=== PATIENT | female | born 1995 | race Caucasian/White ===

== ENCOUNTER 2016-09-20 20:02 | Emergency (ER) | payer OTHER ==
--- NOTE | 2016-09-20 20:30 | EDPHY ---
H & P Stated Complaint: lmixed dark and light blood in diarrhea x1, nausea, denies abd pain HPI/ROS: CHIEF COMPLAINT: Bloody diarrhea. HISTORY OF PRESENT ILLNESS: The patient is a 21-year-old otherwise healthy female who presents with an episode of bloody diarrhea 30 minutes ago. She reports there being a large amount of blood in the toilet. She admits associated nausea. She denies vomiting, other episodes of diarrhea, fever, recent sickness, recent travel, or other complaints. She denies recent sick contact. She has no history of hemorrhoids. She does not have abdominal pain. REVIEW OF SYSTEMS: A ten point review of systems was performed and is negative with the exception of the items mentioned in the HPI. Source: Patient Exam Limitations: No limitations - Personal History LMP (Females 10-55): Extended Cycle BCP/Inj Current Tetanus/Diphtheria Vaccine: Yes Current Tetanus Diphtheria and Acellular Pertussis (TDAP): Yes - Medical/Surgical History Hx Asthma: No Hx Chronic Respiratory Disease: No Hx Diabetes: No Hx Cardiac Disease: No Hx Renal Disease: No Hx Cirrhosis: No Hx Alcoholism: No Hx HIV/AIDS: No Hx Splenectomy or Spleen Trauma: No Other PMH: denies - Social History Smoking Status: Never smoked Additional Social History: [employer] Student, nonsmoker. - Physical Exam Exam: General Appearance: Alert. Vital signs reviewed. Blood pressure 135/95. Afebrile. Eyes: Pupils equal and round, no conjunctival injection, no discharge. Anicteric. ENT, Mouth: Mucous membranes are moist, no oropharyngeal erythema or edema. Neck: No lymphadenopathy, supple. Respiratory: Lungs are clear to auscultation; no wheezes, rales, or rhonchi. Cardiovascular: Regular rate and rhythm; no murmur, rub, or gallop. Gastrointestinal: Abdomen is soft and nontender, no masses or organomegaly, bowel sounds normal. Rectal: No stool in rectal vault. No visible blood on examining glove. No hemorrhoids. No anorectal fissures/lesions. Skin: Warm and dry, no rashes on exposed skin, normal color. Back: Nontender to palpation over the thoracolumbar spine. No CVAT. Extremities: No lower extremity edema, no calf tenderness or swelling. Neurological: Alert and oriented. Moving all four extremities easily and equally. Psychiatric: Normal affect. Constitutional: Initial Vital Signs Temperature (C) 37.1 C 09/20/16 20:05 Heart Rate 90 09/20/16 20:05 Respiratory Rate 16 09/20/16 20:05 Blood Pressure 135/95 H 09/20/16 20:05 O2 Sat (%) 98 09/20/16 20:05 O2 Delivery Mode Room Air Allergies/Adverse Reactions: No Known Allergies Allergy (Verified 09/20/16 20:10) Home Medications: Medication Instructions Recorded Lo Loestrin Fe 1-10 Tablet 09/20/16 Medical Decision Making ED Course/Re-evaluation: An IV was established and labs ordered. I performed a rectal exam--only mucous on examining glove. Stool results returned from the lab negative for blood. Patient's Hgb and Hct are at normal levels. 2231: Reassessed patient. Discussed results of blood work. She has not had more episodes of diarrhea. On exam she has no abdominal tenderness. No evidence of hemodynamic instability. No external hemorrhoids--internal hemorrhoid possible. I do not see anorectal lesions. She has no history of inflammatory disease such as ulcerative colitis , there is nothing in her history or physical to suggest colitis (diarrhea has not recurred, no abdominal pain or cramping, no fever) or diverticulitis (she is young for diverticulitis). She is certain that the bleeding was from her rectum, mixed with stool. I am advising watching and waiting to see if this returns. Danger signs reviewed with her. She is comfortable being discharged. - Data Points Laboratory Results: Laboratory Results 09/20/16 21:15 Departure - Departure Disposition: Home, Routine, Self-Care Clinical Impression: Bloody diarrhea Condition: Good Instructions: Acute Diarrhea (ED) Additional Instructions: Follow up with [facility] in the next 1-2 days if you have continued symptoms. Return to the emergency room if you experience any serious worsening of condition. Referrals: [facility] [Clinic] - As per Instructions Report Scribed for: Jerica Bryson Report Scribed by: Lamont Aldrich Date of Report: 09/20/16 Time of Report: 20:35 Physician Review and Approval Statement: 09/20/16 20:29 Portions of this note were transcribed by the medical accounting clerk. I, Dr. Jerica Bryson, personally performed the history, physical exam, and medical decision- making; and confirmed the accuracy of the information in the transcribed note.
[2016-09-20 21:37] LABS: % IMMATURE GRANULYOCYTES 0.1 % (0.0-1.1); ABSOLUTE IMMATURE GRANULOCYTES 0.01 10^3/uL (0.00-0.10); ADD DIFF? NO; ADD MORPH? NO; ADD SCAN? NO; ATYPICAL LYMPHOCYTE FLAG 10 (0-99); FRAGMENT RBC FLAG 0 (0-99); HEMATOCRIT 38.1 % (38.0-47.0); HEMOGLOBIN 12.7 g/dL (12.6-16.3); LEFT SHIFT FLG 0 (0-99); LIPEMIA HEMOLYSIS FLAG 80 (0-99); MEAN CELL HEMOGLOBIN 30.9 pg (27.9-34.1); MEAN CELL HEMOGLOBIN CONCENTR. 33.3 g/dL (32.4-36.7); MEAN CELL VOLUME 92.7 fL (81.5-99.8); MEAN PLATELET VOLUME 10.5 fL (8.7-11.7); PLATELET CLUMPS FLAG 10 (0-99); PLATELET COUNT 298 10^3/uL (150-400); RED BLOOD CELL COUNT 4.11 10^6/uL (4.18-5.33); RED CELL DISTRIBUTION WIDTH 11.9 % (11.5-15.2)
[2016-09-20 23:01] VITALS: BP 108/56; PULSE 66; RESP 18; TEMP 98.1; O2SAT 97
== END 2016-09-20 23:02 | disposition home or self-care (01) ==
DX: R19.7 Diarrhea, unspecified (principal)